=== PATIENT | male | born 1980 | race Caucasian/White ===

== ENCOUNTER 2018-05-09 23:11 | Emergency (ER) | payer SELFPAY ==
[2018-05-09 23:26] VITALS: BMI 36.8
--- NOTE | 2018-05-09 23:40 | ED PDOC ---
Arrival/HPI - General Historian: Patient - History of Present Illness Time/Duration: Prior to Arrival Symptom Onset: Sudden Symptom Course: Unchanged Quality: Aching <Vanda Higginbotham - Last Filed: 05/09/18 23:40> <Fela Soto PA-C - Last Filed: 05/10/18 00:56> - General Chief Complaint: Back Pain Time Seen by Provider: 05/09/18 23:31 - History of Present Illness Narrative History of Present Illness (Text): 05/09/18 23:40 38 year old male, with no significant past medical history, presents to the emergency department with lower back pain, since yesterday. 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 Patient then informs he jumped off in fear of falling, and landed on both his feet. Patient informs he started feeling lower back pain immediately after that incident. Patient states pain has continued until today. Patient denies any trauma to the back, LOC, numbness, fever, chills, headache, dizziness , chest pain, shortness of breath, cough, abdominal pain, nausea, vomiting, diarrhea, neck pain, urinary/bowel changes, or any other complaint. (Vanda Higginbotham) Past Medical History - Provider Review Nursing Documentation Reviewed: Yes - Psychiatric Hx Substance Use: No (denies) - Anesthesia Hx Anesthesia: No <Vanda Higginbotham - Last Filed: 05/09/18 23:40> Family/Social History - Physician Review Nursing Documentation Reviewed: Yes Family/Social History: No Known Family HX Smoking Status: Never Smoked Hx Alcohol Use: Yes (2 x per week) Frequency of alcohol use: Few days per week Hx Substance Use: No (denies) <Vanda Higginbotham - Last Filed: 05/09/18 23:40> Allergies/Home Meds <Vanda Higginbotham - Last Filed: 05/09/18 23:40> <Fela Soto PA-C - Last Filed: 05/10/18 00:56> Allergies/Adverse Reactions: Allergies No Known Allergies Allergy (Verified 05/09/18 23:26) Review of Systems - Physician Review All systems were reviewed & negative as marked: Yes - Review of Systems Constitutional: Normal. absent: Fevers, Night Sweats Eyes: Normal ENT: Normal Respiratory: Normal. absent: SOB, Cough Cardiovascular: Normal. absent: Chest Pain Gastrointestinal: Normal. absent: Abdominal Pain, Diarrhea, Nausea, Vomiting Genitourinary Male: Normal. absent: Urinary Output Changes Musculoskeletal: Back Pain (lower back pain). absent: Neck Pain, Other (No trauma or numbness) Skin: Normal Neurological: Normal. absent: Headache, Dizziness Endocrine: Normal Hemo/Lymphatic: Normal Psychiatric: Normal <Vanda Higginbotham - Last Filed: 05/09/18 23:40> Physical Exam - Systems Exam Head: Present: Atraumatic, Normocephalic Pupils: Present: PERRL Extroacular Muscles: Present: EOMI Conjunctiva: Present: Normal Mouth: Present: Moist Mucous Membranes Neck: Present: Normal Range of Motion Respiratory/Chest: Present: Clear to Auscultation, Good Air Exchange. No: Respiratory Distress, Accessory Muscle Use Cardiovascular: Present: Regular Rate and Rhythm, Normal S1, S2. No: Murmurs Abdomen: No: Tenderness, Distention, Peritoneal Signs Back: Present: Midline Tenderness (midpoint tenderness at L4 and L5) Upper Extremity: Present: Normal Inspection. No: Cyanosis, Edema Lower Extremity: Present: Normal Inspection. No: Edema Neurological: Present: GCS=15, CN II-XII Intact, Speech Normal Skin: Present: Warm, Dry, Normal Color. No: Rashes Psychiatric: Present: Alert, Oriented x 3, Normal Insight, Normal Concentration , Other (Mild distress) <Vanda Higginbotham - Last Filed: 05/09/18 23:40> Medical Decision Making <Vanda Higginbotham - Last Filed: 05/09/18 23:40> <Fela Soto PA-C - Last Filed: 05/10/18 00:56> ED Course and Treatment: 05/09/18 23:49 Impression: 38 year old male presents to the emergency department with lower back pain. Plan: -- CT Lumbar spine -- Toradol -- Reassess and disposition Prior Visits: Notes and results from previous visits were reviewed. Progress Notes: (Vanda Higginbotham) 05/10/18 00:45 CT L spine : FINDINGS: Vertebrae: No acute fracture. No acute subluxation. Discs/spinal canal/neural foramina: Small L5-S1 disc bulge with mild endplate spurring, not resulting in significant spinal stenosis. Soft tissues: Unremarkable. IMPRESSION: No acute traumatic osseous injury. Small L5-S1 disc bulge. Dictated and Authenticated by: Larry Beltran MD 05/10/2018 12:34 AM Eastern Time ([place] & [place]) On reevaluation, patient reports improvement of symptoms, denies any bowel or bladder incontinence, or LE numbness. On exam, patient remains awake alert and oriented 3 in no acute distress. Repeat neuro exam shows no focal findings. Diagnostic results d/w the patient, he states that he has had similar minor pain in the past in the same location, states that the small disc bulge may not be new. Patient medicated with toradol IM and flexeril PO. Advised to follow up with the clinic in 1-2 days without fail, especially regarding CT results. Advised to take medication as prescribed, and to rest. Return to the emergency room at any time for any new or worsening symptoms. Patient states he fully agrees with and understands discharge instructions. States that he agrees with the plan and disposition. Verbalized and repeated discharge instructions and plan. I have given the patient opportunity to ask any additional questions. 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 <Fela Soto PA-C - Last Filed: 05/10/18 00:56> - Scribe Statement Jose Mendoza Provider Scribe Attestation: All medical record entries made by the Scribe were at my direction and personally dictated by me. I have reviewed the chart and agree that the record accurately reflects my personal performance of the history, physical exam, medical decision making, and the department course for this patient. I have also personally directed, reviewed, and agree with the discharge instructions and disposition. (NahomisauravVanda Garcia) Disposition/Present on Arrival - Present on Arrival History of DVT/PE: No History of Uncontrolled Diabetes: No Urinary Catheter: No History of Decub. Ulcer: No History Surgical Site Infection Following: None <Vanda Higginbotham - Last Filed: 05/09/18 23:40> - Present on Arrival Any Indicators Present on Arrival: No History of DVT/PE: No History of Uncontrolled Diabetes: No Urinary Catheter: No History of Decub. Ulcer: No - Disposition Have Diagnosis and Disposition been Completed?: Yes Disposition Time: 01:00 Patient Plan: Discharge <Fela Soto PA-C - Last Filed: 05/10/18 00:56> - Disposition Diagnosis: Low back pain Disposition: HOME/ ROUTINE Patient Problems: Current Active Problems Problem Status Onset Low back pain Acute Condition: STABLE Discharge Instructions (ExitCare): Low Back Pain in Adults Additional Instructions: Thank you for letting us take care of you today. You were treated for low back pain. The emergency medical care you received today was directed at your acute symptoms. If you were prescribed any medication, please fill it and take as directed. It may take several days for your symptoms to resolve. Return to the Emergency Department if your symptoms worsen, do not improve, or if you have any other problems. Please contact the clinic in 2 days for re-evaluation and follow up. Bring any paperwork you were given at discharge with you along with any medications you are taking to your follow up visit. Our treatment cannot replace ongoing medical care by a primary care provider (PCP) outside of the emergency department. Thank you for allowing the [facility] team to be part of your care today. Your CT of your lumbar spine shows : No acute traumatic osseous injury. Small L5 -S1 disc bulge. *Please follow up CT results with your doctor or the clinic. Prescriptions: Cyclobenzaprine [Cyclobenzaprine HCl] 10 mg PO TID PRN #15 tab PRN Reason: Muscle Spasm Naproxen 500 mg PO BID #30 tab Referrals: [facility] at [facility] [place] [Outside] - Follow up with primary Forms: [employer] (Polish), WORK NOTE
[2018-05-10 01:52] VITALS: BP 148/82; PULSE 79; RESP 18; TEMP 98; O2SAT 98
--- NOTE | 2018-05-10 08:34 | CT ---
Date of service: 05/10/2018 PROCEDURE: CT Lumbar Spine without contrast HISTORY: pain COMPARISON: None available. TECHNIQUE: Axial computed tomography images were obtained of the lumbar spine without the use of intravenous contrast. Coronal and sagittal reformatted images were created and reviewed. Radiation dose: Total exam DLP = 1817 mGy-cm. This CT exam was performed using one or more of the following dose reduction techniques: Automated exposure control, adjustment of the mA and/or kV according to patient size, and/or use of iterative reconstruction technique. FINDINGS: VERTEBRAE: Unremarkable. No fracture. Normal alignment. DISCS/SPINAL CANAL/NEURAL FORAMINA: L1-2: Unremarkable. L2-3: Unremarkable. L3-4: Unremarkable. L4-5: Unremarkable. L5-S1: Mild disc bulge with small superimposed left paracentral disc protrusion. No evidence of spinal stenosis PARASPINAL SOFT TISSUES: Unremarkable. OTHER FINDINGS: The report concurs with the preliminary [facility] report IMPRESSION: Mild disc bulge with small superimposed left paracentral disc protrusion. No evidence of spinal stenosis
== END 2018-05-10 01:00 | disposition home or self-care (01) ==
LOC: ED 23:11
DX: M54.5 Low back pain (principal)
CPT/HCPCS: 72131; 96372; 99282; J1885

== ENCOUNTER 2019-01-19 08:23 | Emergency (ER) | payer OTHER ==
[2019-01-19 08:42] VITALS: RESP 16; TEMP 98.4; O2SAT 99
[2019-01-19 08:43] VITALS: BMI 36.0
--- NOTE | 2019-01-19 09:08 | ED PDOC ---
Arrival/HPI <Christopher Gamez - Last Filed: 01/19/19 09:40> - General Historian: Patient - History of Present Illness Narrative History of Present Illness (Text): 01/19/19 09:19 Patient is a 38 yo obese male with no known PMH who presents with dizziness. Patient states that he has been getting dizzy daily since the beginning of the year. He correlates this with changing his diet to lose weight. Patient states he has decreased the amount he is eating and has lost 35 lbs since September. Patient also states that he has transient blurry vision. He endorses increased thirst, dry mouth, and increased urination. He denies headache, nausea, vomiting, chest pain, and palpitations. He denies falls or LOC. He does not have a PMD. He is presently asymptomatic. <Katarina Alas - Last Filed: 01/19/19 10:42> - General Chief Complaint: Weakness/Neurological Deficit Time Seen by Provider: 01/19/19 09:07 Past Medical History - Provider Review Nursing Documentation Reviewed: Yes Primary Care Provider: PCP,NO - Past History Past History: No Previous - Psychiatric Hx Substance Use: No (denies) - Anesthesia Hx Anesthesia: No <Katarina Alas - Last Filed: 01/19/19 10:42> Family/Social History - Physician Review Nursing Documentation Reviewed: Yes Family/Social History: denies: Diabetes Smoking Status: Never Smoked Hx Alcohol Use: Yes (2 x per week) Hx Substance Use: No (denies) <Katarina Alas - Last Filed: 01/19/19 10:42> Allergies/Home Meds <Christopher Gamez - Last Filed: 01/19/19 09:40> <Katarina Alas - Last Filed: 01/19/19 10:42> Allergies/Adverse Reactions: Allergies No Known Allergies Allergy (Verified 05/09/18 23:26) Review of Systems - Review of Systems Constitutional: Weight Change (intentional). absent: Fevers, Night Sweats Eyes: Vision Changes (transient) ENT: absent: Hearing Changes, Tinnitus Respiratory: absent: SOB, Cough Cardiovascular: absent: Chest Pain, Palpitations, Syncope Gastrointestinal: absent: Abdominal Pain, Constipation, Diarrhea, Nausea, Vomiting Genitourinary Male: absent: Dysuria, Hematuria Musculoskeletal: absent: Arthralgias Skin: absent: Rash, Pruritis, Skin Lesions Neurological: Dizziness. absent: Headache, Focal Weakness Endocrine: Polyuria, Polydipsia. absent: Diaphoresis Hemo/Lymphatic: absent: Adenopathy, Easy Bleeding, Easy Bruising <Katarina Alas - Last Filed: 01/19/19 10:42> Physical Exam Vital Signs Temp Pulse Resp BP Pulse Ox 01/19/19 09:13 76 16 145/81 99 01/19/19 08:37 98.4 F 63 16 134/85 99 - Systems Exam Abdomen: Present: Other <Christopher Gamez - Last Filed: 01/19/19 09:40> Vital Signs Reviewed: Yes Vital Signs Temp Pulse Resp BP Pulse Ox 01/19/19 08:37 98.4 F 63 16 134/85 99 Temperature: Afebrile Blood Pressure: Normal Pulse: Regular Respiratory Rate: Normal Appearance: Positive for: Non-Toxic, Comfortable Pain Distress: None Mental Status: Positive for: Alert and Oriented X 3 - Systems Exam Head: Present: Atraumatic, Normocephalic Pupils: Present: PERRL Extroacular Muscles: Present: EOMI Conjunctiva: Present: Normal Mouth: Present: Moist Mucous Membranes Respiratory/Chest: Present: Clear to Auscultation, Good Air Exchange Cardiovascular: Present: Regular Rate and Rhythm, Normal S1, S2 Abdomen: Present: Other (obese). No: Tenderness, Distention Back: Present: Normal Inspection Neurological: Present: GCS=15, CN II-XII Intact, Speech Normal Skin: Present: Warm, Dry, Normal Color Psychiatric: Present: Alert, Oriented x 3, Normal Insight, Normal Concentration <Katarina Alas - Last Filed: 01/19/19 10:42> Medical Decision Making ED Course and Treatment: 01/19/19 09:40 Patient seen and examined with resident. 38 year old M with chief complaint of dizziness. Speech normal, no abdominal tenderness or distension on physical exam. - Medication Orders Current Medication Orders: Sodium Chloride (Sodium Chloride 0.9%) 1,000 mls @ 999 mls/hr IV .Q1H1M STA Stop: 01/19/19 10:19 <Christopher Gamez - Last Filed: 01/19/19 09:40> ED Course and Treatment: 01/19/19 09:27 CBC, CMP, Mg, Phos, UA - Lab Interpretations I have reviewed the lab results: Yes Interpretation: Abnormal lab values (elev blood glucose, UA- glucose, ketones, protein) - Medication Orders Current Medication Orders: 01/19/19 09:27 NS 1L bolus <Katarina Alas - Last Filed: 01/19/19 10:42> Disposition/Present on Arrival <Christopher Gamez - Last Filed: 01/19/19 09:40> - Present on Arrival Any Indicators Present on Arrival: No History of DVT/PE: No History of Uncontrolled Diabetes: No Urinary Catheter: No History of Decub. Ulcer: No History Surgical Site Infection Following: None - Disposition Have Diagnosis and Disposition been Completed?: Yes Disposition Time: 10:39 Patient Plan: Discharge <Katarina Alas - Last Filed: 01/19/19 10:42> - Disposition Diagnosis: New onset type 2 diabetes mellitus Disposition: HOME/ ROUTINE Patient Problems: Current Active Problems Problem Status Onset New onset type 2 diabetes mellitus Acute Condition: STABLE Discharge Instructions (ExitCare): Type 2 Diabetes, Diabetes Diet Additional Instructions: Establish care at the [facility] at [facility] within 3-5 days of discharge for outpatient management of your diabetes. Avoid eating carbohydrates and sugars. Referrals: [facility] at [facility] [place] [Outside] - Follow up with primary Forms: [employer] (Israeli)
[2019-01-19] MEDS ORDERED: Sodium Chloride 0.9% 1,000 ML IV STA (09:19)
[2019-01-19 09:54] LABS: BASO # 0.01 K/mm3 (0.0-2.0); BASO % 0.2 % (0.0-3.0); EOS # 0.1 (0.0-0.7); EOS % 1.6 % (1.5-5.0); HEMOGLOBIN 14.8 g/dL (14.0-18.0); LYMPH # 2.1 (1.2-3.4); LYMPH % 36.8 % (22.0-35.0); MEAN CELL VOLUME 85.5 fl (80.0-105.0); MEAN CORPUSCULAR HEMOGLOBIN 29.8 pg (25.0-35.0); MEAN CORPUSCULAR HGB CONC 34.9 g/dl (31.0-37.0); MEAN PLATELET VOLUME 9.1 fl (7.0-11.0); MONO # 0.3 (0.1-0.6); MONO % 5.3 % (1.0-6.0); RBC 4.96 10^6/uL (3.5-6.1); RED CELL DISTRIBUTION WIDTH 12.9 % (11.5-14.5); WHITE BLOOD COUNT 5.7 10^3/uL (4.5-11.0)
[2019-01-19 10:02] LABS: URINE BILIRUBIN SMALL (NEGATIVE); URINE BLOOD SMALL (NEGATIVE); URINE GLUCOSE (UA) 500 mg/dL (NEGATIVE); URINE LEUKOCYTE ESTERASE NEGATIVE Leu/uL (NEGATIVE); URINE PROTEIN 30 mg/dL (<30 mg/dL); URINE UROBILINOGEN 0.2 E.U./dL (<1 E.U./dL)
[2019-01-19 10:03] LABS: URINE APPEARANCE CLEAR (CLEAR); URINE COLOR YELLOW (YELLOW)
[2019-01-19 10:14] LABS: ALB/GLOB RATIO 1.4 (1.1-1.8); ALBUMIN 4.5 g/dL (3.0-4.8); ALT/SGPT 20 U/L (7-56); AST/SGOT 21 U/L (17-59); BLOOD UREA NITROGEN 12 mg/dL (7-21); CALCIUM 9.3 mg/dL (8.4-10.5); GFR NON-AFRICAN AMERICAN > 60
[2019-01-19 10:21] LABS: URINE AMORPHOUS SEDIMENT FEW /hpf; URINE BACTERIA MOD /hpf
[2019-01-19 10:37] LABS: VENOUS BLOOD GAS BASE EXCESS -0.8 mmol/L (0.0-2.0); VENOUS BLOOD GAS PO2 35 mm/Hg (30-55); VENOUS BLOOD PH 7.31 (7.32-7.43)
[2019-01-19 11:44] VITALS: BP 124/71; PULSE 72
== END 2019-01-19 11:43 | disposition home or self-care (01) ==
LOC: ED 08:23
DX: E11.9 Type 2 diabetes mellitus without complications (principal)
CPT/HCPCS: 80053; 81001; 82803; 82948; 83735; 84100; 85025; 99285; J7030